=== PATIENT | male | born 1960 | race Caucasian/White ===

== ENCOUNTER 2024-12-31 09:10 | Emergency (ER) | payer BC ==
[~2024-12-31] VITALS: Ht 193 cm; Wt 108.6 kg
[~2024-12-31 09:10] MED LIST: AMLO1TAB33 PO; FLEC100T2 PO
--- NOTE | 2024-12-31 09:51 | Physician Documentation ---
History of Present Illness ~ Chief Complaint: Urinary Retention Stated Complaint: UTI SYMPTOMS Time Seen by MD: 09:29 Primary Medical Doctor: RAGHAV Source: patient (3) HPI Patient comes in with urinary complaints, for evaluation. He reports that he has had a recent rise in PSA levels over the last few months, has been followed up by Dr. Santiago, Urology, with his last visit about six weeks ago. It was felt that his PSA elevation was due to prostatitis, and patient was placed on one month of ciprofloxacin. Despite this his PSA continued to elevate and so he was placed on Bactrim for four weeks, and has taken about 1/3 of the course. He notes that he has dysuria, but lately has had worsening urgency, and frequency, and a sensation of incompletely emptying his bladder, which is negatively impacting his quality of life as he is getting up in the night many times. He has to bear down so hard that he defecates. His last UA was about six weeks ago at the beginning of his workup. He denies any associated vomiting, fever, hematuria (despite being anticoagulated), or flank pain. Medication Reconciliation Allergies: Coded Allergies: No Known Allergies (Unverified , 12/31/24) Scheduled Amlodipine Bes/Olmesartan Med (Georgette 5-20 Mg Tablet), 1 TAB PO DAILY, (Reported) Flecainide Acetate (Flecainide Acetate), 0.5 TABLET PO BID Past Medical History Past Medical History: Atrial Fibrillation, Syncope Past Surgical History: orthopedic surgeries Smoking Status: Never smoker Alcohol Use: Rarely Drug Use: none Lives with: Spouse Lives In: Home Review of Systems All Other Systems at this time: Reviewed and Negative Physical Exam Vital Signs: Temperature: 97.1, Source: Temporal, Heart Rate: 70, Respiratory Rate: 16, BP: 149/94, Pulse Oximetry: 98, Weight: 108.600 Oxygen Flow Rate: 0 Physical Exam General: Pt is awake, alert, oriented x4 in mild distress and well appearing. Head: Normocephalic and atraumatic. Eyes: Conjunctiva normal. ENT: Mucous membranes moist. Neck: Supple. Chest: Clear to auscultation bilaterally, without rales, rhonchi, or wheezes. There is no accessory muscle use or retractions. Cardiac: Regular rate and rhythm without murmurs, gallops or rubs. Palpation of the chest wall is normal. Abd: Soft, nondistended, nontender but palpation makes him have to urinate, with normoactive bowel sounds. No guarding or rebound. Back: No CVAT Extremities: Within normal limits without cyanosis, clubbing, or edema. Skin: [place], warm and dry with no significant rash appreciated. Neuro: Cranial nerves II-XII grossly intact. The gait is normal. Progress Results/Orders Results/Orders Completed Orders - MALATHI GAYTAN MD Cbc/Diff (12/31/24 09:51) BMP (12/31/24 09:51) Phenazopyridine Tablet (Pyridium Tablet) (12/31/24 09:55) Ua W/Microscopic, Cult If Ind (12/31/24 09:31) Lidocaine 2% Jelly 11ml Syr (Glydo-Lidoc (12/31/24 10:20) Medications Received in ER Medications (Trade) Dose Ordered Sig/Sara Route PRN Reason Start Time Stop Time Status Last Admin Dose Admin (Pyridium tablet) 200 mg ONCE ONCE PO 12/31/24 09:55 12/31/24 09:56 DC 12/31/24 10:42 200 MG (GLYDO-Lidocaine 2% Topical Jelly 11mL syringe) 1 applic ONCE ONCE TOP 12/31/24 10:20 12/31/24 10:21 DC 12/31/24 10:42 1 APPLIC Vital Signs 12/31/24 09:12 Temp 97.1 Pulse 70 Resp 16 B/P (MAP) 149/94 Pulse Ox 98 O2 Flow Rate 0 Laboratory Tests Test 12/31/24 09:31 12/31/24 10:04 Urine Specimen Description Voided Urine Color Yellow Urine Clarity Clear Urine pH 6.0 Urine Specific [place] 1.025 Urine Protein Negative Urine Glucose (UA) Negative Urine Ketones Negative Urine Occult Blood Large H Urine Nitrite Negative Urine Bilirubin Negative Urine Urobilinogen 0.2 Urine Leukocyte Esterase Negative Urine RBC 50-100 Urine WBC 0-4 Urine Squamous Epithelial Cells Few Urine Bacteria 1+ Urine Culture Indicated Not ind Volume Urine Centrifuged 10 ml Urine Comment White Blood Count 4.9 Red Blood Count 4.41 L Hemoglobin 15.1 Hematocrit 43.7 Mean Corpuscular Volume 99.3 H Mean Corpuscular Hemoglobin 34.3 H Mean Corpuscular Hemoglobin Concent 34.5 Red Cell Distribution Width 12.9 Platelet Count 176 Mean Platelet Volume 8.7 Neutrophils (%) (Auto) 71.1 Lymphocytes (%) (Auto) 18.3 L Monocytes (%) (Auto) 9.6 Eosinophils (%) (Auto) 0.6 Basophils (%) (Auto) 0.4 Neutrophils # (Auto) 3.5 Lymphocytes # (Auto) 0.9 L Monocytes # (Auto) 0.5 Eosinophils # (Auto) 0.0 Basophils # (Auto) 0.0 CBC Comment Sodium Level 142 Potassium Level 4.8 Chloride Level 106 Carbon Dioxide Level 29.7 Anion Gap 6 L Blood Urea Nitrogen 20 H Creatinine 0.99 Estimated GFR/1.73 m2 76 BUN/Creatinine Ratio 20.2 H Glucose Level 101 Calcium Level 8.6 Albumin 3.9 Chemistry Comments Re-Evaluation Re-Evaluation #1: Re-Evaluation Time: 09:55 Progress Post void residual is 585ml urine. Pyridium now ordered. Re-Evaluation #2: Re-Evaluation Time: 11:15 Progress Patient is feeling 100% better after placement of the Chery catheter and draina ge of the clear nina colored urine. Symptoms are resolved. Medical Decision Making Additional Comment Patient presenting with urgency and frequency and frequent trips to the bathroom, found to be retaining urine with 585 cc of postvoid residual. He is feeling much improved after placement of a Chery catheter for free emptying of the bladder. Urine is clear. Urinalysis shows 1+ bacteria but negative leukocyte and nitrite, patient already on antibiotics, and we will hold off changing those antibiotics until culture results are available. He understands that he is going to need continued workup through Urology, and will likely require cystoscopy for a more definitive diagnosis. He understands that he should have the catheter removed within the next week to 10 days, we will follow up with Dr. Santiago or another urologist of his choice, also we will follow up with his primary care doctor. Patient understands to return to the emergency department for any problems with his catheter, any infection signs, or any other concerns. Departure Time of Disposition: 11:19 Disposition: 01 HOME / SELF CARE / HOMELESS Impression: Primary Impression: Acute urinary retention Discharge Instructions: Acute Urinary Retention, Male Additional Instructions: Please follow-up with Urology for further workup. Your urine culture results should be ready within 72 hours. Chery catheter can be removed in 7-10 days, or as per the urologist. Return to the emergency department if you have difficulties with the catheter, fever, significant blood in the urine, or any other concerns. Referrals: NO PRIMARY CARE PROVIDER (PCP) Education Educated: Patient Educated regarding: diagnosis, treatment Signature Scribe Signature: Attestation: MALATHI GAYTAN MD Dec 31, 2024 09:51
[2024-12-31 10:07] LABS: LEUKOCYTE ESTERASE ,URINE NEGATIVE (Neg); NITRITES, URINE NEGATIVE (Neg); OCCULT BLOOD,URINE LARGE (Neg)
[2024-12-31 10:09] LABS: MEAN PLATELET VOLUME 8.7 FL (7.4-10.4); RED CELL DISTRIBUTION WIDTH 12.9 % (11.5-14.5)
[2024-12-31 10:15] LABS: UA COLLECTION TYPE VOIDED
[2024-12-31 10:17] LABS: SQUAMOUS EPITHELIAL CELL,UR FEW /LPF (FEW)
[2024-12-31 10:22] LABS: CREATININE 0.99 MG/DL (0.60-1.10); TOTAL CARBON DIOXIDE 29.7 MMOL/L (24-32); eCRCL 93 ML/MIN; eGFR 76 ML/MIN
[2024-12-31] MEDS: LidoCAINE 2% Topical Jelly 11mL syringe (UROJET) TOP ONE (10:42)
[2024-12-31] MEDS: phenazopyridine 100mg tablet PO ONE (10:42)
[2024-12-31 11:40] VITALS: BP 126/79; PULSE 58; RESP 16; TEMP 97.9; O2SAT 99
== END 2024-12-31 12:03 | disposition home or self-care (01) ==
LOC: ER 09:10
DX: R33.9 Retention of urine, unspecified (principal); I48.91 Unspecified atrial fibrillation
CPT/HCPCS: 36415; 51702; 51798; 80048; 81001; 85025; 87088; 99284; A4314; A4358

== ENCOUNTER 2025-03-16 12:24 | Emergency (ER) | payer BC ==
[~2025-03-16] VITALS: Ht 193 cm; Wt 105.5 kg
[2025-03-16 13:07] VITALS: BP 114/72; PULSE 63; RESP 16; TEMP 98.9; O2SAT 96
--- NOTE | 2025-03-16 20:18 | Physician Documentation ---
Medication Reconciliation Allergies: Coded Allergies: No Known Allergies (Unverified , 12/31/24) Scheduled Amlodipine Besylate (Amlodipine Besylate), 1 TAB PO DAILY, (Reported) Apixaban (Eliquis), 1 TAB PO BID, (Reported) Carvedilol (Carvedilol), 1 TAB PO QPM, (Reported) Flecainide Acetate (Flecainide Acetate), 50 MG PO BID, (Reported) Irbesartan (Irbesartan), 250 MG PO DAILY, (Reported) Irbesartan (Irbesartan), 50 MG PO QPM, (Reported) Lactobacillus Rhamnosus (Culturelle), 10,000 MMU PO BID [Tamsulosin], 0.4 MG PO HS, (Reported) Discontinued Medications Amlodipine Bes/Olmesartan Med (Georgette 5-20 Mg Tablet), 1 TAB PO DAILY, (Reported) Discontinued Reason: Other Additional Comment Additional Comment Patient left without being seen. Code taking place on floor and patient was observing. Left during a code in another room. States he will return. Was advised by nursing to stay so that he does not have to start the process over. Patient adamant on leaving at this time and physician bedside at code. Signature Scribe Signature: No Scribe Attestation: Signed by Doctor Barron On March 20 2025 at 7:48 PM CATHY BARRON MD Mar 16, 2025 20:18
[2025-03-17] MEDS ORDERED: APIX5TAB3 PO (06:06)
[2025-03-17] MEDS ORDERED: FLEC100T35 PO (06:06)
[2025-03-17] MEDS ORDERED: TAMSULOSIN PO (06:06)
[2025-03-17] MEDS ORDERED: IRBE300T26 PO (06:06)
[2025-03-17] MEDS ORDERED: CARV6.2553 PO (12:17)
[2025-03-17] MEDS ORDERED: AMLO5TAB16 PO (13:47)
[2025-03-17] MEDS ORDERED: IRBE150T34 PO (13:55)
[2025-03-19] MEDS ORDERED: LACT1CAP26 PO (14:30)
== END 2025-03-16 16:19 | disposition left against medical advice (07) ==
LOC: ER 12:25
DX: Z00.00 Encounter for general adult medical examination without abnormal findings (principal); Z53.21 Procedure and treatment not carried out due to patient leaving prior to being seen by health care provider
CPT/HCPCS: 99281